=== PATIENT | female | born 2000 | race Caucasian/White ===

== ENCOUNTER 2019-01-02 07:48 | Emergency (ER) | payer OTHER ==
[2019-01-02] MEDS ORDERED: LEVO1TBD8 PO (08:01)
[2019-01-02] MEDS ORDERED: ONDANSETRON 4 MG/2 ML VIAL IVP ONE (08:25)
[2019-01-02] MEDS ORDERED: KETOROLAC 30 MG/ML VIAL IVP ONE (08:25)
[2019-01-02] MEDS ORDERED: NS(*) 0.9% 1000 ML BAG 1,000 ML IV ONE (08:25)
--- NOTE | 2019-01-02 08:25 | ER Report ---
History and Physical Time Seen By MD: 08:15 Hx. of Stated Complaint: GENERALIZED ABD PAIN, "FEELS LIKE PERIODS PAIN", ALSO REPORTS SOME RLQ PAIN STARTED LAST NIGHT, N/V, DENIES FEVERS/CHILLS, DIARRHEA/CONSTIPATION HPI/ROS CHIEF COMPLAINT: Abdominal pain HISTORY OF PRESENT ILLNESS: Patient is an otherwise healthy 18-year-old female who presents to the emergency department with complaint of abdominal pain. She states the symptoms began around 7 PM last night and the pain was periumbilical and felt as if a dull ache. This was associated with some anorexia as well as nausea. Overnight pain intensified and has now moved to the right lower quadrant. She remains nauseous with anorexia. She denies any subjective fevers or chills. She states that her last period ended this past December 28. It was on time and reported to be normal. She states that she just started taking control pills this week after completion of her period. She states that she has been on this control in the past without complication. She has no prior history of ovarian cyst no history of prior . She denies dysuria. She denies any vaginal discharge or abnormal bleeding. She denies . Currently pain is mild while not moving and reclined but it is worse with movement. REVIEW OF SYSTEMS: Constitutional: No fever, no chills. Eyes: No discharge. ENT: No sore throat. Cardiovascular: No chest pain, no palpitations. Respiratory: No cough, no shortness of breath. Gastrointestinal: Right lower quadrant abdominal pain, nausea Genitourinary: No hematuria. Musculoskeletal: No back pain. Skin: No rashes. Neurological: No headache. Allergies: Coded Allergies: No Known Drug Allergies (Unverified , 01/02/19) Home Meds Active Scripts Hydrocodone Bit/Acetaminophen (HYDROCODON-ACETAMINOPHEN 5-325) 1 Each Tablet, 1 EACH PO Q6H PRN for PAIN, #8 TAB 0 Refills TAKE ONE TABLET BY MOUTH EVERY 4-6 HOURS NEEDED FOR PAIN Prov:RANULFO GRIFFITH MD 01/02/19 Ondansetron Hcl (ZOFRAN) 4 Mg Tablet, 4 MG PO Q8H for Nausea, #15 TAB 0 Refills Prov:RANULFO GRIFFITH MD 01/02/19 Reported Medications Levonorgestrel-Eth Estradiol (JOLESSA) 1 Each Tbdspk.3mo, 1 EACH PO DAILY 01/02/19 Past Medical/Surgical History Noncontributory Constitutional Vital Sign - Last 24 Hours 01/02/19 01/02/19 01/02/19 01/02/19 07:57 08:00 08:15 08:30 Temp 99.3 Pulse 110 104 91 94 Resp 12 B/P (MAP) 134/86 124/84 (97) 117/75 (89) Pulse Ox 95 97 95 95 O2 Delivery Room Air 01/02/19 01/02/19 01/02/19 01/02/19 08:45 09:00 09:30 09:45 Pulse 98 77 80 79 B/P (MAP) 111/73 (86) 118/69 (85) Pulse Ox 97 94 97 95 01/02/19 10:00 Pulse 95 B/P (MAP) 119/76 (90) Pulse Ox 96 Physical Exam General/Constitutional: Patient is awake, alert, nontoxic and in no acute respiratory distress. Head: Normocephalic and atraumatic. Eyes: Conjunctival clear, Pupils are equal and reactive to light. Extraocular muscles are intact and symmetrical. Sclera are clear and anicteric. Ears:External canals are clear. Tympanic membranes are clear with normal landmarks and light reflex. Nares: No rhinorrhea or bleeding. Turbinates are pink and moist. Oropharyngeal: Mucous membranes are moist. There is no pharyngeal erythema or exudate. There are no palatal petechiae. Uvula is midline and symmetrical. Neck: Supple, no adenopathy. Cardiovascular: Heart is regular rate and rhythm without audible murmurs, rubs or gallops. Pulmonary: Lungs are clear to auscultation bilaterally. There are no wheezes, rales, or rhonchi. Chest rise is symmetrical Abdomen: Nondistended, tenderness to percussion over McBurney's point which is the area of maximal intensity of the pain. Normal bowel sounds Extremities: No gross deformities, No peripheral cyanosis. Able to move all 4 extremities. Neuro: Alert and oriented X3, Skin: No rashes, skin is warm dry and well perfused. Medical Decision Making Data Points Result Diagram: 01/02/19 0808 01/02/19 0808 Laboratory Hematology Test 01/02/19 00:00 01/02/19 07:55 01/02/19 08:08 Urine HCG, Qualitative Negative (NEGATIVE) Urine Color Yellow Urine Clarity Cloudy Urine pH 6.0 pH (4.8-9.5) Urine Specific [place] 1.024 Urine Protein Negative mg/dL (NEGATIVE) Urine Glucose (UA) Negative mg/dL (NEGATIVE) Urine Ketones Negative mg/dL (NEGATIVE) Urine Blood Negative (NEGATIVE) Urine Nitrite Negative (NEGATIVE) Urine Bilirubin Negative (NEGATIVE) Urine Urobilinogen Negative mg/dL (0.2-1.9) Urine Leukocyte Esterase Small (NEGATIVE) Urine RBC 6 /HPF (0-2/HPF) Urine WBC 16 /HPF (0-5/HPF) Urine Squamous Epithelial Cells Many /LPF (</=FEW) Urine Transitional Epithelial Cells Few /LPF (NONE-FEW) Urine Bacteria Moderate /HPF (NONE-FEW) Urine Mucus Few /HPF (NONE-FEW) Red Blood Count 4.76 M/uL (4.17-5.56) Mean Corpuscular Volume 92.3 fL (80.0-96.0) Mean Corpuscular Hemoglobin 31.0 pg (26.0-33.0) Mean Corpuscular Hemoglobin Concent 33.6 g/dL (32.0-36.0) Red Cell Distribution Width 13.0 % (11.5-14.5) Mean Platelet Volume 7.4 fL (7.2-11.1) Neutrophils (%) (Auto) 63.6 % (39.4-72.5) Lymphocytes (%) (Auto) 27.6 % (17.6-49.6) Monocytes (%) (Auto) 6.6 % (4.1-12.4) Eosinophils (%) (Auto) 1.3 % (0.4-6.7) Basophils (%) (Auto) 0.9 % (0.3-1.4) Nucleated RBC Relative Count (auto) 0.0 /100WBC Neutrophils # (Auto) 5.6 K/uL (2.0-7.4) Lymphocytes # (Auto) 2.4 K/uL (1.3-3.6) Monocytes # (Auto) 0.6 K/uL (0.3-1.0) Eosinophils # (Auto) 0.1 K/uL (0.0-0.5) Basophils # (Auto) 0.1 K/uL (0.0-0.1) Nucleated RBC Absolute Count (auto) 0.00 K/uL Sodium Level 141 mmol/L (137-145) Potassium Level 3.8 mmol/L (3.5-5.0) Chloride Level 103 mmol/L (98-107) Carbon Dioxide Level 25 mmol/L (22-31) Blood Urea Nitrogen 12 mg/dl (7-18) Creatinine 0.80 mg/dl (0.52-1.04) Glomerular Filtration Rate Calc > 60.0 Random Glucose 94 mg/dl (75-110) Calcium Level 9.9 mg/dl (8.4-10.2) Total Bilirubin 0.7 mg/dl (0.2-1.3) Aspartate Amino Transf (AST/SGOT) 26 U/L (0-35) Alanine Aminotransferase (ALT/SGPT) 28 U/L (0-56) Alkaline Phosphatase 88 U/L (0-126) Total Protein 8.5 g/dl (6.3-8.2) Albumin 4.7 g/dl (3.5-5.0) Lipase 104 U/L (23-300) Helicobacter pylori IgG Antibody Negative (NEGATIVE) Chemistry Test 01/02/19 00:00 01/02/19 07:55 01/02/19 08:08 Urine HCG, Qualitative Negative (NEGATIVE) Urine Color Yellow Urine Clarity Cloudy Urine pH 6.0 pH (4.8-9.5) Urine Specific [place] 1.024 Urine Protein Negative mg/dL (NEGATIVE) Urine Glucose (UA) Negative mg/dL (NEGATIVE) Urine Ketones Negative mg/dL (NEGATIVE) Urine Blood Negative (NEGATIVE) Urine Nitrite Negative (NEGATIVE) Urine Bilirubin Negative (NEGATIVE) Urine Urobilinogen Negative mg/dL (0.2-1.9) Urine Leukocyte Esterase Small (NEGATIVE) Urine RBC 6 /HPF (0-2/HPF) Urine WBC 16 /HPF (0-5/HPF) Urine Squamous Epithelial Cells Many /LPF (</=FEW) Urine Transitional Epithelial Cells Few /LPF (NONE-FEW) Urine Bacteria Moderate /HPF (NONE-FEW) Urine Mucus Few /HPF (NONE-FEW) White Blood Count 8.8 k/uL (4.5-11.0) Red Blood Count 4.76 M/uL (4.17-5.56) Hemoglobin 14.8 g/dL (12.0-16.0) Hematocrit 44.0 % (34.0-47.0) Mean Corpuscular Volume 92.3 fL (80.0-96.0) Mean Corpuscular Hemoglobin 31.0 pg (26.0-33.0) Mean Corpuscular Hemoglobin Concent 33.6 g/dL (32.0-36.0) Red Cell Distribution Width 13.0 % (11.5-14.5) Platelet Count 396 K/uL (150-450) Mean Platelet Volume 7.4 fL (7.2-11.1) Neutrophils (%) (Auto) 63.6 % (39.4-72.5) Lymphocytes (%) (Auto) 27.6 % (17.6-49.6) Monocytes (%) (Auto) 6.6 % (4.1-12.4) Eosinophils (%) (Auto) 1.3 % (0.4-6.7) Basophils (%) (Auto) 0.9 % (0.3-1.4) Nucleated RBC Relative Count (auto) 0.0 /100WBC Neutrophils # (Auto) 5.6 K/uL (2.0-7.4) Lymphocytes # (Auto) 2.4 K/uL (1.3-3.6) Monocytes # (Auto) 0.6 K/uL (0.3-1.0) Eosinophils # (Auto) 0.1 K/uL (0.0-0.5) Basophils # (Auto) 0.1 K/uL (0.0-0.1) Nucleated RBC Absolute Count (auto) 0.00 K/uL Glomerular Filtration Rate Calc > 60.0 Calcium Level 9.9 mg/dl (8.4-10.2) Total Bilirubin 0.7 mg/dl (0.2-1.3) Aspartate Amino Transf (AST/SGOT) 26 U/L (0-35) Alanine Aminotransferase (ALT/SGPT) 28 U/L (0-56) Alkaline Phosphatase 88 U/L (0-126) Total Protein 8.5 g/dl (6.3-8.2) Albumin 4.7 g/dl (3.5-5.0) Lipase 104 U/L (23-300) Helicobacter pylori IgG Antibody Negative (NEGATIVE) Urinalysis Test 01/02/19 00:00 01/02/19 07:55 Urine HCG, Qualitative Negative (NEGATIVE) Urine Color Yellow Urine Clarity Cloudy Urine pH 6.0 pH (4.8-9.5) Urine Specific [place] 1.024 Urine Protein Negative mg/dL (NEGATIVE) Urine Glucose (UA) Negative mg/dL (NEGATIVE) Urine Ketones Negative mg/dL (NEGATIVE) Urine Blood Negative (NEGATIVE) Urine Nitrite Negative (NEGATIVE) Urine Bilirubin Negative (NEGATIVE) Urine Urobilinogen Negative mg/dL (0.2-1.9) Urine Leukocyte Esterase Small (NEGATIVE) Urine RBC 6 /HPF (0-2/HPF) Urine WBC 16 /HPF (0-5/HPF) Urine Squamous Epithelial Cells Many /LPF (</=FEW) Urine Transitional Epithelial Cells Few /LPF (NONE-FEW) Urine Bacteria Moderate /HPF (NONE-FEW) Urine Mucus Few /HPF (NONE-FEW) ED Course/Re-evaluation Clinical Indication for ER IV: Hydration, IV Access ED Course 01/02/2019 8:24:32 am After history and physical exam was performed differential diagnosis was formulated which includes but is not limited to acute appendicitis, colitis, mesenteric adenitis, ovarian cysts, ovarian torsion, urinary tract infection. Plan at this time will be abdominal workup. Prior to the blood tests the patient's Clark score is 62.4 right lower quadrant pain, 1 point for temperature of 99.3 Fahrenheit, 1 point for migration to the right lower quadrant, 1 point for anorexia, 1 point for nausea. We will give the patient IV Zofran and Toradol as well as IV fluids. We will check CBC CMP test urinalysis and perform a contrast enhanced CT scan of the abdomen and pelvis. Decision to Disposition Date: Jan 02, 2019 Decision to Disposition Time: 10:01 Depart Departure Latest Vital Signs Vital Signs Date Time Temp Pulse Resp B/P (MAP) Pulse Ox O2 Delivery O2 Flow Rate FiO2 01/02/19 10:00 95 119/76 (90) 96 01/02/19 07:57 99.3 12 Room Air Impression: Primary Impression: Mesenteric adenitis Condition: Improved Disposition: HOME OR SELF-CARE New Scripts Hydrocodone Bit/Acetaminophen (HYDROCODON-ACETAMINOPHEN 5-325) 1 Each Tablet 1 EACH PO Q6H PRN for PAIN, #8 TAB 0 Refills TAKE ONE TABLET BY MOUTH EVERY 4-6 HOURS NEEDED FOR PAIN Prov: RANULFO GRIFFITH MD 01/02/19 Ondansetron Hcl (ZOFRAN) 4 Mg Tablet 4 MG PO Q8H for Nausea, #15 TAB 0 Refills Prov: RANULFO GRIFFITH MD 01/02/19 Departure Forms: ER Transition Record, Medications Reconciliation, Off Work/School Form, School or Work Release?: Work Number of days to be released: 2 Patient Portal Information Patient Instructions: Mesenteric Adenitis (ED) Additional Instructions: Return to the emergency department in 5-7 days if symptoms persist, return immediately if your symptoms worsen including fever of 101.4 or higher, persistent nausea or vomiting, worsening pain. RANULFO GRIFFITH MD Jan 02, 2019 08:25
[2019-01-02 08:36] LABS: PLATELET COUNT, AUTOMATED 396 K/uL (150-450)
[2019-01-02] MEDS ORDERED: IOPAMIDOL 76% 100 ML INFUS BTL 100 ML ONE (09:16)
--- NOTE | 2019-01-02 09:57 | RADIOLOGY IMAGING REPORT ---
FACILITY: [facility] PATIENT NAME: Emeli Cuellar : 2000 MR: [id number] V: [id number] EXAM DATE: ORDERING PHYSICIAN: RANULFO GRIFFITH TECHNOLOGIST: Location: [facility] [place] Patient: Emeli Cuellar : 2000 Visit/Account:[id number] Date of Sevice: 01/02/2019 CT ABDOMEN PELVIS W/ CON HISTORY: Right lower quadrant pain and vomiting TECHNIQUE: Following administration of IV contrast contiguous axial images acquired through the abdom en/pelvis. Coronal and sagittal reformatting also performed.Dose Lowering Technique One of the following dose optimization techniques was utilized in the performance of this exam: Autom ated exposure control; adjustment of the mA and/or kV according to the patient's size; or use of an i terative reconstruction technique. Specific details can be referenced in the facility's radiology C T exam operational policy. CONTRAST: 75 mL Isovue-370 COMPARISON: None. FINDINGS: Visualized lung bases: Negative. Hepatobiliary: Negative. Spleen: Negative. Adrenals: Negative. Pancreas: Negative. Kidneys ureters or bladder: Negative. Genitalia: Retroverted uterus. There is a 1.7 cm right ovarian cyst. There is a small amount of fr ee pelvic fluid in the cul-de-sac GI: The appendix is visualized and does not appear inflamed. There is a moderate amount of fecal ma terial throughout colon which can be seen with constipation. Vessels/spaces/nodes: There multiple prominent mesenteric lymph nodes in the right mid and lower abd omen. The two largest lymph nodes measure 1.9 x 1 cm and 1.5 x 0.9 cm . Period Bones/soft tissues: Negative. Additional findings: None pertinent. IMPRESSION: There is a 1.7 cm right ovarian cyst. A small amount of free pelvic fluid is present in the cul-de-s ac. The appendix is visualized does not appear inflamed Moderate amount of fecal material throughout colon which can be seen with constipation Multiple prominent mesenteric lymph nodes in the right mid and lower abdomen. This may be reactive i n nature. Clinical correlation needed Report Dictated By: Mikayla Hayes MD at 01/02/2019 9:28 AM Report E-Signed By: Mikayla Hayes MD at 01/02/2019 9:52 AM WSN:[email or web address]
[2019-01-02 10:00] VITALS: BP 119/76
[2019-01-02] MEDS ORDERED: LOR5/325 PO (10:03)
[2019-01-02] MEDS ORDERED: ONDA4TAB97 PO (10:03)
== END 2019-01-02 10:12 | disposition home or self-care (01) ==
LOC: ER 08:25
DX: I88.0 Nonspecific mesenteric lymphadenitis (principal)
CPT/HCPCS: 74177; 81001; 81025; 83690; 85025; 86677; 96361; 96374; 96375; 99284; J1885; J2405; J7030; Q9967; 82040; 82247; 82310; 82374; 82435; 82565; 82947; 84075; 84132; 84155; 84295; 84450; 84460; 84520